=== PATIENT | male | born 1960 | race Asian ===

== ENCOUNTER 2017-02-05 20:55 | Emergency (ER) | payer OTHER ==
[~2017-02-05] VITALS: Ht 165.1 cm; Wt 59.0 kg
== END 2017-02-05 22:17 | disposition home or self-care (01) ==
LOC: ED 20:55
DX: F22 Delusional disorders (principal); R44.3 Hallucinations, unspecified
CPT/HCPCS: 99281

== ENCOUNTER 2018-02-08 15:48 | Emergency (ER) | payer OTHER ==
[~2018-02-08] VITALS: Ht 165.1 cm; Wt 61.2 kg
[2018-02-08 17:11] LABS: PLATELET COUNT 168 K/uL (142-355)
[2018-02-08 17:22] LABS: POTASSIUM 4.2 mmol/L (3.6-5.2)
== END 2018-02-08 19:20 | disposition home or self-care (01) ==
LOC: ED 15:48
PROVIDERS: Specialist
DX: R50.9 Fever, unspecified (principal)
CPT/HCPCS: 36415; 80053; 80307; 81000; 85027; 85651; 87040; 87077; 87185; 87186; 87205; 87804; 96360; 99284